=== PATIENT | male | born 1960 | race Caucasian/White ===

== ENCOUNTER 2024-09-22 14:40 | Emergency (ER) | payer MEDICARE ==
[~2024-09-22] VITALS: Ht 177.8 cm; Wt 85.5 kg
[2024-09-22] MEDS ORDERED: COREG25 MG PO (15:09)
[2024-09-22] MEDS ORDERED: JANTOVEN5 MG PO (15:09)
[2024-09-22] MEDS ORDERED: CARVEDILOL25 MG PO (15:12)
[2024-09-22] MEDS ORDERED: carvediloL 6.25 MG TAB PO ONE (15:15)
[2024-09-22 15:18] VITALS: BP 179/88
== END 2024-09-22 15:18 | disposition home or self-care (01) ==
LOC: ED 14:40
DX: I10 Essential (primary) hypertension (principal)
CPT/HCPCS: 99283